=== PATIENT | male | born 1995 | race African-American/Black ===

== ENCOUNTER 2023-11-27 20:02 | Emergency (ER) | payer OTHER ==
[~2023-11-27] VITALS: Ht 203.2 cm; Wt 102.1 kg
[2023-11-27 20:24] VITALS: BP_SYST 138; PULSE 85; RESP 18; TEMP 98; O2SAT 97
[2023-11-27] MEDS ORDERED: IBUP-1971 PO (20:31)
[2023-11-27] MEDS ORDERED: CLIN-142 PO (20:31)
[2023-11-27] MEDS ORDERED: HYDR-3917 PO (20:31)
== END 2023-11-27 20:44 | disposition home or self-care (01) ==
LOC: SED 20:02
DX: K04.7 Periapical abscess without sinus (principal); Z79.899 Other long term (current) drug therapy
CPT/HCPCS: 99283